=== PATIENT | male | born 1985 | race Caucasian/White ===

== ENCOUNTER 2016-10-02 10:21 | Emergency (ER) | payer MEDICAID ==
[~2016-10-02] VITALS: Ht 157.5 cm; Wt 77.0 kg
[2016-10-02 10:23] VITALS: Ht 157.5 cm; Wt 77.0 kg
[2016-10-02] MEDS ORDERED: HYDROCODONE/APAP (5/325) TAB PO ONE (11:00)
--- NOTE | 2016-10-02 11:02 | ERD ---
ER Documentation Chief Complaint Date/Time DATE: 10/02/16 TIME: 10:54 Chief Complaint lashay fall, has right wrist pain HPI This is a 31-year-old male who presents to the emergency department today complaining of right wrist and thumb pain after falling earlier this morning while cleaning the floors. Patient denies any previous trauma. He is not taking medication for the pain. Denies any fevers or chills. ROS All systems reviewed and are negative except as per history of present illness. Medications Home Meds Active Scripts Acetaminophen* (Tylophen*) 500 Mg Capsule, 1 CAP PO Q6H Y for PAIN AND OR ELEVATED TEMP, #30 CAP Prov:RON SOLIS PA-C 10/02/16 Naproxen* (Naprosyn*) 500 Mg Tablet, 500 MG PO BID Y for PAIN AND/OR INFLAMMATION, #30 TAB Prov:RON SOLIS PA-C 10/02/16 Hydrocodone/Acetaminophen ([place] 5-325 Tablet) 1 Each Tablet, 1 TAB PO Q6H Y for PAIN, #10 TAB Prov:RON SOLIS PA-C 10/02/16 PMhx/Soc Medical and Surgical Hx: pt denies Medical Hx, pt denies Surgical Hx History of Surgery: No Anesthesia Reaction: No Hx Neurological Disorder: No Hx Respiratory Disorders: No Hx Cardiac Disorders: No Hx Psychiatric Problems: No Hx Miscellaneous Medical Probl: No Hx Alcohol Use: No Hx Substance Use: No Hx Tobacco Use: No Smoking Status: Never smoker Physical Exam Vitals Vital Signs Date Time Temp Pulse Resp B/P Pulse Ox O2 Delivery O2 Flow Rate FiO2 10/02/16 10:23 98.1 78 20 130/78 99 Physical Exam Const: No acute distress Head: Atraumatic Eyes: Normal Conjunctiva ENT: Normal External Ears, Nose and Mouth. Neck: Full range of motion..~ No meningismus. Resp: Clear to auscultation bilaterally Cardio: Regular rate and rhythm, no murmurs Skin: No petechiae or rashes MSK: Right elbow with full active range of motion. Right forearm with mild swelling. No obvious deformity. Right wrist and hand with no obvious deformity. Mild effusion over thenar eminence. Tenderness palpation thumb and mild tenderness palpation scaphoid. Unable to assess range of motion secondary to pain. Pulses 2+. Distal neurovascularly intact Neur: Awake and alert Psych: Normal Mood and Affect Results 24 hrs Current Medications Medications (Trade) Dose Ordered Sig/Sherita Route PRN Reason Start Time Stop Time Status Last Admin Dose Admin Acetaminophen/ Hydrocodone Bitart ([place] (5/325)) 1 tab ONCE ONCE PO 10/02/16 11:00 10/02/16 11:01 DC 10/02/16 10:41 DIAGNOSTIC IMAGING REPORT Patient: DEZ LEWIS : 1985 Age: 31 Sex: M MR #: [id number] DOS: 10/02/16 0000 Ordering MD: RON SOLIS PA-C Location: [facility] Room/Bed: PROCEDURE: XR Right Thumb CLINICAL INDICATION: Status post fall, pain TECHNIQUE: AP, oblique, and lateral radiographs were submitted. COMPARISON: None FINDINGS: Osseous structures: appear well mineralized and intact with no fracture or destructive process identified. Joint spaces: are well maintained, with no significant spurring, erosion or joint effusion evident. Soft tissues: appear unremarkable. IMPRESSION: Unremarkable right thumb. Physician Bharti Date Time Electronically viewed and signed by Physician Bharti on 10/02/2016 11:18 RH/ CC: RON SOLIS PA-C DIAGNOSTIC IMAGING REPORT Patient: DEZ LEWIS : 1985 Age: 31 Sex: M MR #: [id number] DOS: 10/02/16 0000 Ordering MD: RON SOLIS PA-C Location: [facility] Room/Bed: PROCEDURE: XR Right Wrist with Navicular View CLINICAL INDICATION: Status post fall, pain TECHNIQUE: AP, lateral, and oblique views as well as a carpal navicular view were submitted. COMPARISON: None FINDINGS: Osseous structures: appear well mineralized and intact with no fracture or destructive process identified. Joint spaces: are well maintained with no significant erosions or spurring identified. Soft tissues: appear unremarkable. IMPRESSION: Unremarkable right wrist with navicular view. Physician Bharti Date Time Electronically viewed and signed by Physician Bharti on 10/02/2016 11:17 RH/ CC: RON SOLIS PA-C Procedures/MDM This a right-handed 31-year-old male who presents to the emergency department today complaining of right wrist and thumb pain that started this morning after mechanical fall. Given that there was trauma and patient did have some tenderness and swelling it did obtain images. Per the radiology report images of the right wrist and thumb are unremarkable. Osseous structures are well-maintained with no fracture or dislocation. Joint spaces are well-maintained. Soft tissues are unremarkable. Symptoms at this time is consistent with strain versus sprain versus contusion however patient did have some scaphoid tenderness and therefore I will place him in a splint. Patient is distally neurovascularly intact pre-and post splint application. Patient was given [place] here in the emergency department. Patient was given a prescription for a short course of [place] for home as well as Naprosyn and Tylenol. At this time the patient is stable for discharge and outpatient management. Patient should follow up with their PCP in the next 1-2 days. They may return to the emergency department sooner for any persistent or worsening of symptoms. Patient understood and agreed with the plan. Departure Diagnosis: Primary Impression: Wrist injury Encounter type: initial encounter Laterality: right Qualified Code: S69.91XA - Wrist injury, right, initial encounter Condition: Fair RON SOLIS PA-C Oct 02, 2016 11:02
--- NOTE | 2016-10-02 11:17 | RADRPT ---
PROCEDURE: XR Right Wrist with Navicular View CLINICAL INDICATION: Status post fall, pain TECHNIQUE: AP, lateral, and oblique views as well as a carpal navicular view were submitted. COMPARISON: None FINDINGS: Osseous structures: appear well mineralized and intact with no fracture or destructive process iden tified. Joint spaces: are well maintained with no significant erosions or spurring identified. Soft tissues: appear unremarkable. IMPRESSION: Unremarkable right wrist with navicular view. Physician Bharti Date Time Electronically viewed and signed by Physician Bharti on 10/02/2016 11:17 /
--- NOTE | 2016-10-02 11:18 | RADRPT ---
PROCEDURE: XR Right Thumb CLINICAL INDICATION: Status post fall, pain TECHNIQUE: AP, oblique, and lateral radiographs were submitted. COMPARISON: None FINDINGS: Osseous structures: appear well mineralized and intact with no fracture or destructive process iden tified. Joint spaces: are well maintained, with no significant spurring, erosion or joint effusion evident. Soft tissues: appear unremarkable. IMPRESSION: Unremarkable right thumb. Physician Bharti Date Time Electronically viewed and signed by Chris Gore Physician on 10/02/2016 11:18 /
[2016-10-02] MEDS ORDERED: NAPR-260 PO (11:25)
[2016-10-02] MEDS ORDERED: ACET500C5 PO (11:25)
[2016-10-02] MEDS ORDERED: HYDR-906 PO (11:25)
[2016-10-02 11:49] VITALS: BP 128/80; PULSE 78; RESP 20; TEMP 98.3
== END 2016-10-02 11:48 | disposition home or self-care (01) ==
LOC: FTE 10:21
DX: S69.91XA Unspecified injury of right wrist, hand and finger(s), initial encounter (principal); W18.39XA Other fall on same level, initial encounter; Y92.9 Unspecified place or not applicable
CPT/HCPCS: 29125; 73110; 73140; Z7610